=== PATIENT | male | born 1980 | race Caucasian/White ===

== ENCOUNTER 2021-01-15 21:22 | Emergency (ER) | payer MEDICAID ==
[~2021-01-15] VITALS: Ht 165.1 cm; Wt 81.6 kg
--- NOTE | 2021-01-15 22:07 | NUR ---
x ray at bedside
[2021-01-15 22:18] LABS: HEMATOCRIT 39.9 % (36.7-47.1); MEAN CORPUSCULAR HEMOGLOBIN 29.9 uug (23.8-33.4); MEAN CORPUSCULAR VOLUME 88.9 fL (73.0-96.2); PLATELET COUNT (AUTO) 222 K/uL (152-348)
[2021-01-15] MEDS: KETOROLAC TROMETHAMINE 30 MG INJ IVP ONE (22:22)
[2021-01-15] MEDS ORDERED: KETOROLAC TROMETHAMINE 30 MG INJ ONE (22:25)
[2021-01-15 22:29] LABS: BILIRUBIN,DIRECT 0.1 mg/dL (0.0-0.2); BILIRUBIN,TOTAL 0.2 mg/dL (0.2-1.0); CREATININE 0.7 mg/dL (0.6-1.3); POTASSIUM 3.6 mmol/L (3.5-5.1); TOTAL PROTEIN, SERUM 7.3 g/dL (6.4-8.2)
[2021-01-16] MEDS ORDERED: CLINDAMYCIN PHOSPHATE 600 MG/4 ML VIAL ONE (00:15)
[2021-01-16] MEDS: CLINDAMYCIN PHOSPHATE IV 600 MG in IV DEXTROSE 5% 100 ML IV ONE (00:22)
[2021-01-16] MEDS ORDERED: CLIN300C12 PO (00:47)
[2021-01-16] MEDS ORDERED: INDO50CA92 PO (00:47)
[2021-01-16] MEDS ORDERED: COLC0.6C3 PO (00:47)
[2021-01-16] MEDS: methylPREDNISolone SOD SUCC 125 MG/2 ML VIAL IV ONE (01:00)
[2021-01-16] MEDS ORDERED: methylPREDNISolone SOD SUCC 125 MG/2 ML VIAL ONE (01:00)
--- NOTE | 2021-01-16 01:10 | NUR ---
IV removed. Catheter intact and site benign. Pressure and 4x4 gauze applied to site. No bleeding noted.
--- NOTE | 2021-01-16 01:24 | NUR ---
Patient discharged to home in stable condition. Written and verbal after care instructions given. Patient verbalizes understanding of instructions. Stressed follow up or return to ER for worsening s/s.
[2021-01-16 01:25] VITALS: BP 132/80
== END 2021-01-16 01:25 | disposition home or self-care (01) ==
LOC: ER 21:24
DX: M10.9 Gout, unspecified (principal); L03.115 Cellulitis of right lower limb; F17.210 Nicotine dependence, cigarettes, uncomplicated; Z59.00 Homelessness unspecified; R56.9 Unspecified convulsions
CPT/HCPCS: 36415; 71045; 73630; 80048; 80076; 83605; 84145; 84550; 85025; 85651; 87040 ×2; 96365; 96375 ×2; 99284; 99406; J1885; J2930; J3490; J7060; A4663